=== PATIENT | female | born 1995 | race Caucasian/White ===

== ENCOUNTER 2022-09-02 07:51 | Outpatient (CLI) | payer OTHER, SELFPAY ==
--- NOTE | ~2022-09-02 | US_ITS ---
EXAMINATION: US pelvic complete w TV DATE: 09/02/2022 08:42 INDICATION: Pelvic cramping TECHNIQUE: Multiple transabdominal and endovaginal sonographic images of the pelvis were obtained. COMPARISON: None. FINDINGS: The uterus measures 9.8 x 4.3 x 4.1 cm. The endometrial complex measures 8 mm. The right ov magdiel measures 3.3 x 2.6 x 1.7 cm and contains a 2 cm simple cyst, considered normal in a reproductive age female. The left ovary measures 2.5 x 1.7 x 1.4 cm. There is normal vascular flow in the ovaries. There is no free fluid in the pelvis. IMPRESSION: 1. No sonographic correlate for the patient's symptoms. Reviewed, dictated and finalized at location L. T [facility]
== END 2022-09-02 07:52 | disposition home or self-care (01) ==
LOC: CHSIMG 07:58
PROVIDERS: PCP Family Medicine; Visit Provider Physician Assistant
DX: R10.2 Pelvic and perineal pain (principal)
CPT/HCPCS: 76830; 76856